=== PATIENT | female | born 2000 | race Caucasian/White ===

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

== ENCOUNTER 2020-07-07 00:15 | Emergency (ER) | payer MEDICAID, OTHER ==
[~2020-07-07] VITALS: Ht 157.5 cm; Wt 68.2 kg
[2020-07-07 00:21] VITALS: BP 126/75
--- NOTE | 2020-07-07 00:24 | NUR ---
PT AMBULATED TO BED 4 WITH STEADY GAIT
--- NOTE | 2020-07-07 00:27 | NUR ---
PT USING RESTROOM
--- NOTE | 2020-07-07 00:30 | NUR ---
FEMIOR AT BEDSIDE
[2020-07-07] MEDS ORDERED: NACL 0.9% 500 ML IV ONE (00:34)
[2020-07-07] MEDS ORDERED: KETOROLAC 30 MG/ML VIAL IVP ONE (00:35)
[2020-07-07 00:48] LABS: APPEARANCE,URINE CLEAR (CLEAR); BILIRUBIN,URINE NEGATIVE (NEGATIVE); BLOOD, URINE 2+ (NEGATIVE); COLOR,URINE YELLOW (YELLOW); LEUKOCYTE ESTERASE ,URINE NEGATIVE (NEGATIVE); NITRITE, URINE NEGATIVE (NEGATIVE); PH,URINE 7.5 (5.0-9.0); UGLUCOSE NEGATIVE (NEGATIVE)
[2020-07-07 00:50] LABS: BASOPHILS # (AUTO) 0.1 K/uL (0.00-0.22); BASOPHILS % (AUTO) 0.8 % (0.0-2.0); EOSINOPHILS # (AUTO) 0.2 K/uL (0-0.4); EOSINOPHILS % (AUTO) 2.7 % (0.0-4.0); HEMATOCRIT 43.4 % (36-48); HEMOGLOBIN 14.7 g/dL (12.0-16.0); LYMPHOCYTES # (AUTO) 2.2 K/uL (2.5-16.5); MEAN CORPUSCULAR HEMOGLOBIN 30 pg (27-31); MEAN CORPUSCULAR HGB CONC 34 g/dL (33-37); MEAN CORPUSCULAR VOLUME 89.9 fL (80-94); MONOCYTES # (AUTO) 0.7 K/uL (0.8-1.0); MONOCYTES % (AUTO) 9.2 % (1.7-9.3); NEUTROPHILS # (AUTO) 4.6 K/uL (1.8-7.7); NEUTROPHILS % (AUTO) 59.3 % (42.2-75.2); PLATELET COUNT (AUTO) 341 K/uL (140-450); RED BLOOD CELL COUNT(AUTO) 4.83 MIL/uL (4.20-5.40); RED CELL DISTRIBUTION WIDTH 13.6 % (11.6-13.7); WHITE BLOOD COUNT (AUTO) 7.8 K/uL (4.5-11.0)
[2020-07-07 00:59] LABS: CARBON DIOXIDE 27.8 mmol/L (21-32); CREATININE 0.8 mg/dL (0.6-1.3); POTASSIUM 3.8 mmol/L (3.5-5.1)
[2020-07-07 01:09] LABS: WBC,URINE 0-5 /HPF (0-5)
[2020-07-07 01:10] LABS: ALBUMIN 4.6 g/dL (3.4-5.0); TOTAL BILIRUBIN 0.3 mg/dL (0.0-1.0)
--- NOTE | 2020-07-07 01:13 | NUR ---
PT TAKEN TO RADIOLOGY
--- NOTE | 2020-07-07 01:22 | NUR ---
PT RETURN VIA W/C FROM RAD
[2020-07-07 02:22] VITALS: BP 120/65
== END 2020-07-07 03:50 | disposition home or self-care (01) ==
LOC: MED 00:15
DX: S39.011A Strain of muscle, fascia and tendon of abdomen, initial encounter (principal); R03.0 Elevated blood-pressure reading, without diagnosis of hypertension; X58.XXXA Exposure to other specified factors, initial encounter; Y93.89 Activity, other specified; Y92.89 Other specified places as the place of occurrence of the external cause; Y99.8 Other external cause status
CPT/HCPCS: 36415; 74176; 80053; 81001; 81025; 85025; 96374; 99284; J1885; J7030

== ENCOUNTER 2020-08-19 13:02 | Emergency (ER) | payer OTHER ==
[~2020-08-19] VITALS: Ht 152.4 cm; Wt 68.9 kg
[2020-08-19 13:38] VITALS: BP 135/86
--- NOTE | 2020-08-19 15:20 | NUR ---
AMBULATED TO BED 3
--- NOTE | 2020-08-19 15:29 | NUR ---
JULES Sandoval is evaluating the patient at bedside.
--- NOTE | 2020-08-19 15:30 | NUR ---
PT C/O VAGINAL PAIN X 3 DAYS. +VAGINAL ITCHING, NO DISCHARGE NOTED. SEXUALLY ACTIVE, USES PROTECTION DENIES DYSURIA, HEMATURIA, ABDOMINAL PAIN LMP: JUL 17, 2020 PMH: DENIES NKA
[2020-08-19] MEDS ORDERED: KETOROLAC 30 MG/ML VIAL IM ONE (15:35)
[2020-08-19 15:50] VITALS: BP 128/78
--- NOTE | 2020-08-19 15:50 | NUR ---
Patient discharged with v/s stable. Written and verbal after care instructions given and explained. Patient alert, oriented and verbalized understanding of instructions. Ambulatory with steady gait. All questions addressed prior to discharge. ID band removed. Patient advised to follow up with PMD. Rx of Naprosyn 500mg and Bactrim DS 800mg-160mg given. Patient educated on indication of medication including possible reaction and side effects. Opportunity to ask questions provided and answered.
== END 2020-08-19 15:50 | disposition home or self-care (01) ==
LOC: MED 13:02
DX: N75.0 Cyst of Bartholin's gland (principal)
CPT/HCPCS: 36415; 81002; 81025; 87491; 96372; 99283; J1885